=== PATIENT | male | born 1990 | race Caucasian/White ===

== ENCOUNTER 2018-01-12 08:13 | Emergency (ER) | payer SELFPAY ==
[~2018-01-12] VITALS: Ht 182.9 cm; Wt 62.0 kg
[~2018-01-12 08:13] MED LIST: ALBUAER3 INH; E-ZMIS3; PRED20 PO
[2018-01-12 08:22] VITALS: BP 111/73; PULSE 58; RESP 16; TEMP 97.3; O2SAT 98
[2018-01-12 08:40] LABS: BLOOD, URINE LARGE (NEG); GLUCOSE,URINE NEG (NEG); KETONE, URINE 40 mg/dL (NEG); NITRITE,URINE NEG (NEG); URINE COLOR YELLOW (YELLW/STRAW); URINE LEUKOCYTE ESTERASE NEG (NEG)
[2018-01-12 08:43] LABS: BILIRUBIN, URINE NEG (NEG)
[2018-01-12 08:45] LABS: SQUAMOUS EPITHELIAL CELL URINE 0-5 /hpf (0-5); WBC, URINE 0-2 /hpf (0-5)
[2018-01-12] MEDS ORDERED: ZOFR4TAB3 SL (09:05)
[2018-01-12] MEDS ORDERED: NAPR500T2 PO (09:05)
[2018-01-12] MEDS ORDERED: TRAM50TA PO (09:05)
--- NOTE | 2018-01-12 09:05 | PD ---
HPI Chief Complaint: Flank/Kidney Pain Time Seen by Provider: 08:48 Travel History International Travel<30 days: No Contact w/Intl Traveler<30days: No Traveled to known affect area: No History of Present Illness HPI This is a 27-year-old male who presents to the emergency department with left- sided flank pain that started this morning, sharp, stabbing associated with some nausea and one episode of vomiting. He came to the emergency department and he urinated and noticed that his urine was a little bloody and he thought he saw something and it. He has had kidney stones before and this feels similar. Currently his pain has resolved. He denies any fevers or chills and he has no history of IV drug use. PFSH Past Medical History Asthma: Yes Diminished Hearing: No Kidney Stones: Yes Respiratory: Yes (ASTHMA) Tetanus Vaccination: Unknown Influenza Vaccination: No Social History Alcohol Use: No Tobacco Use: Yes Substance Use: No Allergies-Medications (Allergen,Severity, Reaction): Coded Allergies: cat dander (Unverified Allergy, Severe, Sneezing, 01/12/18) SNEEZING, ITCHY, WATERY EYES. Reported Meds & Prescriptions Reported Meds & Active Scripts Active No Active Prescriptions or Reported Medications Review of Systems Except as stated in HPI: all other systems reviewed are Neg Physical Exam Narrative GENERAL:Well appearing, no acute distress SKIN: Focused skin assessment warm and dry. HEAD: Atraumatic. Normocephalic. EYES: Pupils equal and round. No injection or drainage. ENT: Moist mucous membranes NECK: Trachea midline. CARDIOVASCULAR: Regular rate and rhythm. No murmur appreciated. RESPIRATORY: Clear to auscultation. Breath sounds equal bilaterally. GASTROINTESTINAL: Abdomen soft, non-tender, nondistended. MUSCULOSKELETAL: No obvious deformities. NEUROLOGICAL: Awake and alert. No obvious cranial nerve deficits. Moving all extremities. PSYCHIATRIC: Appropriate mood and affect; insight and judgment normal. Data Data Last Documented VS Vital Signs Date Time Temp Pulse Resp B/P (MAP) Pulse Ox O2 Delivery O2 Flow Rate FiO2 01/12/18 08:35 16 01/12/18 08:22 97.3 58 111/73 (86) 98 Orders Orders Urinalysis - C+S If Indicated (01/12/18 08:28) Ed Poc Ultrasound (01/12/18 ) Labs Laboratory Tests Test 01/12/18 08:34 Urine Color YELLOW Urine Turbidity CLEAR Urine pH 5.0 Urine Specific [place] GREATER/EQUAL 1.030 Urine Protein 100 mg/dL Urine Glucose (UA) NEG mg/dL Urine Ketones 40 mg/dL Urine Occult Blood LARGE Urine Nitrite NEG Urine Bilirubin NEG Urine Urobilinogen 1.0 MG/DL Urine Leukocyte Esterase NEG Urine RBC 10-14 /hpf Urine WBC 0-2 /hpf Urine Squamous Epithelial Cells 0-5 /hpf Urine Bacteria NONE /hpf Microscopic Urinalysis Comment CULT NOT INDICATED MDM Medical Decision Making Medical Screen Exam Complete: Yes Emergency Medical Condition: Yes Interpretation(s) Afebrile, mild bradycardia, intensive Urinalysis demonstrates some blood Differential Diagnosis Urinary tract infection, kidney stone, pyelonephritis, pancreatitis, hydronephrosis Narrative Course This is a 27-year-old male who presents to the emergency department with signs and symptoms classic for kidney stone. Currently his pain is resolved and he thinks he passed it when he arrived in the emergency department. Urinalysis demonstrates some blood with no infection. Bedside ultrasound demonstrates no hydronephrosis. Given his well appearance I don't think any diagnostics are warranted and I think he passed his kidney stone when he arrived. Patient will be discharged with pain control in the case that he has recurrent symptoms. He was asked to follow-up in 2-3 days if his symptoms do not improve for imaging. Diagnosis Primary Impression: Kidney stone Patient Instructions: General Instructions Additional Instructions: If you develop severe pain, inability to eat or drink, or fever return to the emergency department. Med/Other Pt SpecificInfo: Prescription(s) given Scripts Ondansetron Odt (Zofran Odt) 4 Mg Tab 4 MG SL Q6HR Y for Nausea/Vomiting, #15 TAB 0 Refills Prov: Sinai Jones MD 01/12/18 Tramadol (Tramadol) 50 Mg Tab 50 MG PO Q6H Y for PAIN, #8 TAB 0 Refills Prov: Sinai Jones MD 01/12/18 Naproxen (Naproxen) 500 Mg Tab 500 MG PO BID Y for PAIN SCALE 4 TO 10, #15 TAB 0 Refills Prov: Sinai Jones MD 01/12/18 Disposition: 01 DISCHARGE HOME Condition: Stable Sinai Jones MD Jan 12, 2018 09:05
== END 2018-01-12 09:21 | disposition home or self-care (01) ==
LOC: PHED 08:13
DX: N20.0 Calculus of kidney (principal); R11.2 Nausea with vomiting, unspecified; Z72.0 Tobacco use; Z87.442 Personal history of urinary calculi; Z87.09 Personal history of other diseases of the respiratory system
CPT/HCPCS: 81001; 99283